=== PATIENT | male | born 1965 | race Caucasian/White ===

== ENCOUNTER 2024-12-31 05:04 | Inpatient (IN) | payer OTHER, SELFPAY ==
[2024-12-31] VITALS (22 sets, daily range): BP systolic 75–150; BP diastolic 44–100; BMI 29.7
--- NOTE | 2024-12-31 03:10 | ED.GENMED ---
History of Present Illness
General
Chief Complaint: Chest Pain
Source: patient
Exam Limitations: none
Time Seen by Provider: 12/31/24 02:47
Nursing documentation reviewed up to this point in time: agreed with
History of Present Illness
History of Present Illness:
59-year-old male presents to the emergency department with substernal chest pain that began approximate 45 minutes prior to arrival. According to he was ashen and sweaty. Patient denies any previous cardiac history. Upon arrival he states
that his pain was 10 out of 10. Upon arrival and after immediate intervention, he states his pain was 6 out of 10. Patient EKG was suspicious for early STEMI. I immediately [place] texted to Dr. Kip Tenorio, cardiology. She concurred and
recommended activation of the [facility] Program Coordinator.
Past History
Past History
ED Past Medical History: Hypercholesterolemia and Other (Kidney stones, Sleep apnea)
ED Past Surgical History: Other (Hernia repair)
Social History
Tobacco: Former smoker
Alcohol: Occasional
Drug: None
Personal:
Living: with family (with son)
Employment: Employed
Family History
Family History: Other (Father first heart attack in his 50's)
Phy Exam
Physical Exam
Physical Exam:
Physical Exam
Vital signs and allergy list reviewed and agreed with.
GENERAL: Alert , in moderate to severe apparent distress
EYE: pupils equal, EOMI, anicteric
NECK: Supple, no significant adenopathy. No masses. Trachea midline
ENT: Oropharynx is clear, mmm.
CARDIAC: Regular rate and rhythm
LUNGS: Clear breath sounds bilaterally, no acute respiratory distress, no wheezes/rales/rhonchi
ABDOMEN: Soft, without focal tenderness
NEUROLOGICAL: Alert and oriented, no focal neuro deficits
SKIN: Warm and diaphoretic, ashen in appearance
MUSCULOSKELETAL: No edema, well perfused. Moves all 4 extremities
PSYCH: Anxious affect, normal communication
Scores
Heart Score for Chest Pain Patients
STEMI patient?: Yes
Course
Orders/Labs/Results
Orders:
Orders
12/31/24 02:40
Electrocardiogram (*1) Urgent
Reason for Study: Chest Pain
EKG- Treatment ONCE
12/31/24 02:52
Electrocardiogram (*1) Stat
Reason for Study: Other
Other Reason for Exam: chest pain
Cardiac Monitoring- Treatment ONCE
EKG- Treatment ONCE
12/31/24 02:56
Cardiac Monitoring- Treatment ONCE
IV Insert/Care/Rem.- Treatment PRN
O2 Therapy [RESP] Urgent
Titrate/Wean O2 to maintain O2 sat greater than (%): 90
Special Instructions: Maintain sats >/=90%
Pulse Ox/spot Check [RESP] Urgent
Quantity: 1
Special Instructions: ON ROOM AIR
12/31/24 02:57
Complete Blood Count/With Diff Urgent
Comprehensive Metabolic Panel Urgent
PTT Urgent
Prothrombin Time Urgent
12/31/24 02:58
NT-proBNP Urgent
Troponin I Urgent
12/31/24 03:00
Electrocardiogram (*1) Urgent
Reason for Study: Chest Pain
EKG- Treatment ONCE
12/31/24 03:27
Fentanyl Citrate/Pf [Sublimaze] 100 mcg .ROUTE .STK-MED ONE
Heparin 1000 Units/500 ml [Heparin] 1,000 units in 500 ml .ROUTE .STK-MED
Heparin Sodium,Porcine/Ns/Pf [Heparin 2000 Units/1000 ml] 2,000 unit in 1,000 ml .ROUTE .STK-MED
Lidocaine HCl/Pf [Xylocaine-Mpf 1% Vial] 200 mg .ROUTE .STK-MED ONE
Midazolam HCl [Versed] 2 mg .ROUTE .STK-MED ONE
12/31/24 03:28
Heparin 10,000 units .ROUTE .STK-MED ONE
Verapamil Injectable [Isoptin/Verapamil Injection] 5 mg .ROUTE .STK-MED ONE
12/31/24 03:37
Nitroglycerin [Tridil] 1,500 mcg .ROUTE .STK-MED ONE
12/31/24 03:51
Aspirin Chewable [Low Strength Aspirin] 324 mg .ROUTE .STK-MED ONE
Heparin 5,000 units .ROUTE .STK-MED ONE
Ticagrelor [Brilinta] 180 mg .ROUTE .STK-MED ONE
12/31/24 03:58
Eptifibatide [Integrilin] 20 ml .ROUTE .STK-MED
12/31/24 04:24
Admit Patient As Directed
Co-Sign Provider:
Level of Care: Inpatient admission
Assign to:: IVU
Physician / Group: Ngozi
Diagnosis: Anterior STEMI
Patient Condition: Good
Reason for Hospitalization: Anterior STEMI
Expected length of stay greater than two midnights?: Yes
ELOS- Estimated Length of Stay in days: 2
I certify the patient meets the requirements for IP care: Yes
Electrocardiogram (*1) Urgent
Reason for Study: Other
Other Reason for Exam: s/p intervention
Code Status As Directed
Resuscitation Status: Full Code
CARDIAC REHAB CONSULT Routine
Co-Sign Provider:
Cardiac Rehab & Exercise Evaluation Referral
Type of Cardiac Rehab Referral: Outpatient
Diagnosis: STEMI
Date of Diagnosis/Surgery: [id number]
Referring Provider: Honorio Melvin
[facility] Intensive Cardiac Rehab Exercise Prescription
The above named person is capable of participating in an intensive cardiac rehab exercise therapy program
under the guidance of the [facility] cardiac rehab staff, outpatient registered dieticians and
supervision of a physician.
ICR Program Objectives:
Provide supervised exercise, cooking classes, nutritional counseling and healthy mind-set education to
improve the function/symptom free work capacity to an optimal level as well as control risk factors to
prevent the progression of heart disease. During the supervised exercise therapy session some or all of
the following may be included in the cardiac rehab session: ECG telemetry, BP, heart rate, rate of
perceived exertion, symptoms/tolerance, cholesterol testing and education. Exercise modalities may
include: treadmill, upright or recumbent bike, spin bike, rowing machine, elliptical, recumbent
elliptical, arm-bike machine, recumbent stepper and free weights.
Intensity:
All CR staff will use ACSM guidelines: Most patients will exercise in the following range: Heart Rate
[place] range of 40% to 80% & Oxygen Uptake reserve range 40-80% (VO2R). Peak heart rate and VO2 are
derived from the cardiac rehab submaximal graded exercise test at RPE of 13/14 out of 20. Initial
intensity range: RPE 11 to 14/20 and may expand to 11 to 16/20.
Duration & Frequency:
If appropriate the patient will be progressed up to 40 minutes of exercise therapy. Patients will be
instructed to come three times a week in cardiac rehab and at a home/other gym to achieve optimal
physical activity/exercies i.e. 4000-10,000 steps per day.
Education:
The patient will receive one-on-one education during their orientation, initial exercise evaluation, ITP
reassessments and discharge session. Each exercise session will also include an education class (30-40
minutes).
Activity As Directed
Activity Level: Out of Bed- Chair
Comment: bed/chair rest for 2 hours then out of bed ad víctor
[facility] Coordinator Procedure As Directed
Cardiac Cath Procedure: percutaneous coronary intervention
Intake/ Output As Directed
Frequency: Per unit guidelines
Notify MD As Directed
Notify physician if: immediately for chest pain or bleeding from access site(s)
Radial Artery Hemostasis Method As Directed
Instructions:: 3 mL out at 2 hour posts placement of band
3 mL out at 2 1/2 hours post placement of band
3 mL out at 3 hours post placement of band
Off at 3 1/2 hours post placement of band
If any oozing or hemotoma occurs:: re-inflate band and call provider
Site Checks As Directed
Check access site for bleeding/hematoma: Yes
Comment: on arrival, Q15min x4, Q30min x2, Q1 hr x2, Q2 hr x2, Q4 hr or per
protocol
Vascular Checks As Directed
Location: distal to access site - pulse check
Frequency: Other
Comment: on arrival, Q15min x4, Q30min x2, Q1 hr x2, Q2 hr x2, Q4 hr or per protocol
Vital Signs As Directed
Frequency: Other
Additional Instructions:: on arrival, Q15min x4, Q30min x2, Q1 hr x2, Q2 hr x2, then Q4 hr or per unit
protocol
12/31/24 04:25
PRN Pain Medication Management As Directed
May give lesser potent ordered pain med per pt: Yes
preference::
Protocol:: Medication orders for pain may be administered in a
manner that supports deferring to patient preference
when the pt is:
- Requesting an ordered lesser potent pain medication.
Least to most potent pain medications are defined
as: acetaminophen < NSAID < tramadol < opioids
(morphine, oxycodone, hydromorphone).
- Requesting a lesser dose of the same medication IF
ORDERED.
- Requesting a less intrusive route of administration
if both routes are prescribed by the provider (PO <
IV).
12/31/24 04:26
DX Deep Vein Thrombosis Video Routine
12/31/24 04:29
Acetaminophen [Tylenol] 650 mg PO Q4HPRN PRN
12/31/24 05:00
Flush (0.9% Sodium Chloride) [Flush (Nss)] See Dose Instructions IV PER PROTOCOL
12/31/24 05:35
Cardiovascular Evaluation IN AM
Glycohemoglobin (HgbA1c) Routine
TSH Urgent
Troponin I Q6H
12/31/24 Breakfast
Cholesterol Lowering
Cholesterol Lowering: Sodium, 2 Gram
12/31/24 08:00
Aspirin Chewable [Low Strength Aspirin] 81 mg PO DAILY
Lisinopril [Zestril] 2.5 mg PO DAILY
Metoprolol Xl [Toprol Xl] 12.5 mg PO DAILY
Ticagrelor [Brilinta] 90 mg PO BID
12/31/24 09:00
Electrocardiogram (*1) IN AM
Reason for Study: Other
Other Reason for Exam: s/p intervention
12/31/24 10:30
Troponin I Q6H
12/31/24 16:30
Troponin I Q6H
12/31/24 18:00
Atorvastatin [Lipitor] 80 mg PO QPM
Enoxaparin Sodium [Lovenox] 40 mg SC QPM
01/01/25 06:00
Echo 2D MMode Color/Doppler IN AM
Reason for Study: Anterior STEMI
Cardiology Consult: Honorio Melvin
Basic Metabolic Panel IN AM
Complete Blood Count/No Diff IN AM
01/02/25 06:00
Basic Metabolic Panel IN AM
Complete Blood Count/No Diff IN AM
Abnormal Lab Results
12/31/24 12/31/24 12/31/24
02:57 02:58 03:38
MCH 31.5 H pg
(27.0-31.0)
MPV 11.0 H fL
(7.4-10.4)
Absolute Lymphs (auto) 3.8 H 10^3/uL
(1.2-3.4)
Absolute Monos (auto) 0.9 H 10^3/uL
(0.1-0.6)
Neutrophils % 41.9 L %
(42.2-75.2)
Monocytes % 10.0 H %
(1.7-9.3)
Glucose 135 H mg/dl
(70-99)
ALT 52 H U/L
(0-50)
Troponin I 0.050 H* ng/ml
POC ACT Low Range 171 H Seconds
(116-155)
12/31/24 12/31/24
03:53 04:05
MCH
MPV
Absolute Lymphs (auto)
Absolute Monos (auto)
Neutrophils %
Monocytes %
Glucose
ALT
Troponin I
POC ACT Low Range 219 H Seconds 388 H Seconds
(116-155) (116-155)
12/31/24 02:57
12/31/24 02:57
Vital Signs
Initial and Last Documented VS:
Initial Vital Signs
Temp Pulse Resp BP Pulse Ox
98.6 F 56 18 129/83 99
12/31/24 02:48 12/31/24 02:48 12/31/24 02:48 12/31/24 02:48 12/31/24 02:48
Last Documented Vital Signs
Temp Pulse Resp BP Pulse Ox
98.6 F 67 24 141/85 97
12/31/24 02:48 12/31/24 06:00 12/31/24 03:25 12/31/24 06:00 12/31/24 06:02
*Critical Care Note
Total Time (30-74mins, 75-104mins- exclusive of procedures): 30 (30 Critical care statement: A total of 30 minutes of critical care time was provided for this patient. This time is separate from time utilized to perform the aforementioned
documented procedures. Aggregate critical care time includes only time during which I was engaged in work dire)
Update Note
Update Note:
Dr. Melvin present at the bedside
ED Attending Note
-
Portions of this chart may have been created with voice recognition software.� Occasional wrong word or��sound alike� substitutions may have occurred due to the inherent limitations of voice recognition software.
Discharge Plan
Departure
Patient Disposition: [facility]
Admit to: geophysical laboratory director
Presentation/result/management discussed w/ accepting MD/DO: Dr. Melvin
Patient with high blood pressure during this ER visit?: Yes
Discharge Problem:
ACS (acute coronary syndrome)
Interventions
Interventions:
*Risk Screen - Suicide Last Done: 12/31/24 02:48
*General Assessment Last Done: 12/31/24 02:48
*Neglect/Abuse Screening Last Done: 12/31/24 02:48
*ED COVID-19 Vaccine History Last Done: 12/31/24 02:48
*Nursing Disposition Last Done: 12/31/24 03:38
Discharge Date and Time
Discharge Date/Time: 12/31/24 03:39
[2024-12-31 03:15] LABS: % Basophils 0.8 % (0-2); % Eosinophils 3.2 % (0-6); % Immature Granulocytes 0.2 % (0-0.5); % Lymphocytes 43.9 % (20.5-51.1); % Neutrophils 41.9 % (42.2-75.2); Absolute Basophils 0.1 10^3/uL (0-0.2); Absolute Eosinophils 0.3 10^3/uL (0-0.7); Absolute Lymphocytes 3.8 10^3/uL (1.2-3.4); Absolute Monocytes 0.9 10^3/uL (0.1-0.6); Absolute Neutrophils 3.7 10^3/uL (1.4-6.5); Hematocrit 46.8 % (39.0-52.0); Hemoglobin 16.5 g/dL (13.0-18.0); Mean Corp Hgb Conc. 35.3 g/dL (33.0-37.0); Mean Corpuscular Hgb 31.5 pg (27.0-31.0); Mean Corpuscular Volume 89.5 fL (80.0-94.0); Nucleated Red Blood Cells % 0 % (-); Platelet Count 206 10^3/uL (130-400); Red Blood Cell Count 5.23 10^6/uL (4.70-6.10); Red Cell Dist. Width 12.9 % (11.5-14.5); White Blood Cell Count 8.7 10^3/uL (4.8-10.8)
[2024-12-31 03:27] LABS: INR 1.05
[2024-12-31 03:32] LABS: ALT (SGPT) 52 U/L (0-50); AST (SGOT) 28 U/L (17-59); Albumin 3.9 g/dl (3.5-5.0); Alkaline Phosphatase 70 U/L (38-126); Blood Urea Nitrogen 18 mg/dl (9-20); Calcium 9.8 mg/dl (8.4-10.2); Carbon Dioxide 26 mmol/L (22-30); Chloride 105 mmol/L (98-107); Estimated Creatinine Clearance 86 ml/min; Glucose 135 mg/dl (70-99); Potassium 3.7 mmol/L (3.5-5.1); Sodium 138 mmol/L (135-145); Total Bilirubin 0.8 mg/dl (0.2-1.3); Total Protein 6.4 g/dl (6.3-8.2); eGFR > 60.00
[2024-12-31 03:45] LABS: ACT-LR - POC 171 Seconds (116-155)
[2024-12-31 03:50] LABS: NT-proBNP < 20.0 pg/ml
[2024-12-31 03:58] LABS: ACT-LR - POC 219 Seconds (116-155)
[2024-12-31 04:11] LABS: ACT-LR - POC 388 Seconds (116-155)
--- NOTE | 2024-12-31 04:48 | ITS.CL.CATH ---
[facility] - Catheterization
Cardiac Catheterization
Procedure Report:
LEFT HEART CATH AND CORONARY INTERVENTION
Date of Procedure: December 31, 2024
Referring: [facility] Emergency Department
PROCEDURES:
1. Left heart catheterization with coronary and single-plane left ventriculography
2. Successful stenting of 100% occluded mid LAD with a 3.0 x 22 mm [place] stent that was implanted at nominal pressures and postdilated to high pressures with a 3.25 mm noncompliant balloon between 18 and 24 juan antonio
INDICATION: This is a 59-year-old gentleman with no prior cardiac history who presented to [facility] with 10 out of 10 substernal chest tightness diaphoresis and nausea. His electrocardiogram was concerning for an evolving anterior wall
myocardial infarction with approximately [address] elevation in the anterior leads. His symptoms improved somewhat with heparin and nitroglycerin but persisted and a STEMI alert was activated. He states that he experienced midepigastric and
substernal chest tightness of similar quality earlier on the day before admission with symptoms lasting about an hour before resolution after taking some Tums. This evening the symptoms persisted leading him to seek medical attention
ACCESS: Right radial artery, 6 Slovenian sheath
HEMODYNAMICS (mmHg):
AO (s/d, m) : 134/70
LV (s/d) : 130/16
LVEDP : 32
CORONARY FINDINGS
Dominance: Right
LEFT MAIN: Normal
LEFT ANTERIOR DESCENDING: The LAD arises normally from the left main and runs in the anterior interventricular groove as a large-caliber vessel. The LAD becomes 100% occluded in its mid segment.
CIRCUMFLEX: The circumflex gives rise to a moderate caliber proximally arising OM1, small OM 2 then continues in the AV groove giving rise to 2 small posterolateral branchs
RIGHT CORONARY: The right coronary artery is a medium caliber dominant vessel with a 60% proximal stenosis. The remainder of the right coronary artery has only minor irregularities. The PDA is small and patent.
VENTRICULOGRAPHY: Left ventriculography is performed in an CUMMINS projection. The digital single-plane left ventricular ejection fraction is estimated at 50% with distal anterior, apical, and inferoapical hypokinesis
ANGIOPLASTY PROCEDURE DETAIL: Upon review of the diagnostic angiograms a decision was made to proceed with percutaneous revascularization of the occluded segment in the mid LAD. Intravenous heparin was administered and a double bolus of Integrilin
was given with ongoing symptoms and an antiplatelet na�ve patient with 100% occlusion of the mid LAD. He had received aspirin and a loading dose of ticagrelor while in the emergency department.
The origin of the left main was cannulated with a 6 Slovenian XB 3.5 guiding catheter and a BMW guidewire across the occluded segment in the mid LAD and was advanced to the distal. Balloon predilation was performed with a 2.0 mm Euphora balloon and
was followed by placement of a 3.0 x 22 mm [place] stent that was implanted at nominal pressures and postdilated to high pressures with a 3.25 mm noncompliant balloon. The proximal portion of the stent was implanted with a 3.25 mm noncompliant balloon
to 22 juan antonio while the distal site of the stent was postdilated to 18 juan antonio
RADIATION SUMMARY: Fluoro Time (min): 11.4, Dose (mGy): 1173, DAP (Gy.cm2) : 102
CONCLUSIONS
1. Evolving anterior wall myocardial infarction with 100% occlusion of the mid LAD. Successful angioplasty and stenting of the LAD with placement of a 3.0 x 22 mm [place] stent that was postdilated to high pressures with a 3.25 mm noncompliant balloon
2. Preserved LV systolic function with distal anterior, apical, and apical inferior hypokinesis
3. Moderate coronary disease in the proximal RCA
RECOMMENDATIONS
1. Uninterrupted dual antiplatelet therapy for 12 months
2. High intensity statin and guideline directed medical therapy
3. Will trend serial troponin levels and check hemoglobin A1c. Fasting lipid profile will be obtained.
4. Echocardiogram on 01/01/2025
5. Further management decisions will be made based on clinical course
[2024-12-31 06:23] LABS: HDL Cholesterol 48 mg/dl; LDL Cholesterol, Calculated 75 mg/dl; Total Cholesterol 135 mg/dl (50-199); Triglyceride 60 mg/dl (10-149); Very Low Density Lipoprotein 12 mg/dl (0-30)
[2024-12-31 06:55] LABS: TSH 2.83 uIU/ml (0.47-4.68)
--- NOTE | 2024-12-31 07:19 | PTCARENOTE ---
Received patient @ 0440 from [facility]. A&Ox3. Vitals stable, on 2L O2. 8mL of air in right radial band. Right radial site clean, dry, and intact. No hematoma and soft to the touch. Discussed temporary bedrest, deflating the band, ambulation time,
and not using arm to push self up. Patient verbalized understanding. Call crawford within reach.
[2024-12-31] MEDS: TOPROL XL 12.5 MG PO (08:25)
[2024-12-31] MEDS: LOW STRENGTH ASPIRIN 81 MG PO (08:25)
[2024-12-31] MEDS: BRILINTA 90 MG PO ×2 (08:25→19:21)
[2024-12-31] MEDS: ZESTRIL 2.5 MG PO (08:26)
[2024-12-31] MEDS: FLUSH (NSS) 2 FLUSH IV (08:27)
--- NOTE | 2024-12-31 10:11 | PTCARENOTE ---
Received patient this morning resting in bed, S.O. at the bedside. Radial band was dry and intact, continued to remove air from the band as per post cath orders. 2x2 dressing with tegaderm now in place right wrist. Strong radial pulse palpated, no
bleeding or signs of hematoma noted. Reinforced post cath activity restrictions and plan of care. Denies any chest pain, monitoring VS, 0900 EKG completed, call crawford in reach.
[2024-12-31 10:46] LABS: Glycohemoglobin (HgbA1c) 5.8 % (4.0-5.6)
[2024-12-31] MEDS: LIPITOR 80 MG PO (17:26)
[2024-12-31] MEDS: LOVENOX 40 MG SC (17:27)
[2025-01-01] VITALS (7 sets, daily range): BP systolic 95–157; BP diastolic 65–94
--- NOTE | 2025-01-01 05:13 | PTCARENOTE ---
Rec'd pt at change of shift. PT AAO*3, VSS, and SR with bundle on TELE monitor. Pt denies any active pain or discomfort. R radial site CDI, and pt agrees to R upper extremity restriction. Pt updated on plan of care and resting with call crawford in
reach.
[2025-01-01 05:27] LABS: Hematocrit 47.7 % (39.0-52.0); Hemoglobin 16.3 g/dL (13.0-18.0); Mean Corp Hgb Conc. 34.2 g/dL (33.0-37.0); Mean Corpuscular Hgb 31.4 pg (27.0-31.0); Mean Corpuscular Volume 91.9 fL (80.0-94.0); Platelet Count 177 10^3/uL (130-400); Red Blood Cell Count 5.19 10^6/uL (4.70-6.10); Red Cell Dist. Width 13.2 % (11.5-14.5); White Blood Cell Count 8.6 10^3/uL (4.8-10.8)
[2025-01-01 05:50] LABS: Blood Urea Nitrogen 16 mg/dl (9-20); Calcium 9.1 mg/dl (8.4-10.2); Carbon Dioxide 24 mmol/L (22-30); Chloride 102 mmol/L (98-107); Estimated Creatinine Clearance 97 ml/min; Glucose 113 mg/dl (70-99); Sodium 137 mmol/L (135-145); eGFR > 60.00
--- NOTE | 2025-01-01 08:35 | PTCARENOTE ---
Received patient this morning resting in bed, offers no complaints, echo being done at the bedside.
[2025-01-01] MEDS: ZESTRIL 2.5 MG PO (08:52)
[2025-01-01] MEDS: BRILINTA 90 MG PO ×2 (08:52→19:35)
[2025-01-01] MEDS: LOW STRENGTH ASPIRIN 81 MG PO (08:52)
[2025-01-01] MEDS: FLUSH (NSS) 2 FLUSH IV (08:53)
[2025-01-01] MEDS: TOPROL XL 12.5 MG PO (08:53)
--- NOTE | 2025-01-01 10:27 | W.PN.CARDCBS ---
Addendum entered and electronically signed by Omega Bianchi DO 01/01/25 11:40:
I saw and examined the patient.
The Ribber's note was reviewed and I agree with the note.
Comment:
Plan:
Cont routine post KS care
Reviewed cath with pt
Cont DAPT with ASA and Brilinta
Echo pending
Outpt cardiac rehab.
Add Zetia to Crestor for LDL goal <70.
SALOMÓN has been reviewed, CPAP is recommended and he will need outpt pulm follow up
Likely d/c next 24 hrs
Reviewed with nursing
Original Note:
Today's Communication / Plan
-
Echo pending
Cont meds
51 min including face to face and coordination of care
D/C to home tomorrow
Impression / Plan
-
PCP: Dr. Austen Ruby
Cardiology: None
Impression:
Admitted with NSTEMI and PCI 12/31/2024
AWMI with [address] elevation in anterior leads and ongoing symptoms of STEMI alert activated peak troponin 9.04 12/31/2024
CAD s/p 3 mm Ayad VINOD to 100% occlusion of mid LAD 12/31/2024
CAD with residual 60% proximal RCA stenosis
Hyperlipidemia
SALOMÓN
Echo 01/01/2025: Report pending
Plan:
-Patient came to ER early on the morning of 12/31/2024 with chest pain and ST elevation that initially did not meet criteria for traditional STEMI alert, but due to ongoing pain STEMI alert was activated and patient was taken to [facility] where he
was found to have a 100% occlusion of the mid LAD that was treated with PTCA and stenting using a 3 mm Ayad VINOD. There was residual 60% proximal RCA. Troponin peaked at 9.04. He is pain-free.
-Echo pending, ventriculogram done at time of cardiac cath showed EF 50% with distal anterior, apical and inferoapical hypokinesis
-Patient is tolerating aspirin and Brilinta. CM working on cost and availability
-New to Toprol XL 12.5 mg daily
-New to lisinopril 2.5 mg daily
-Patient was taking Crestor 40 mg daily prior to admission, but patient had been off of statin for 2 years until he reestablished PCP care 08/04/24.
-Lexicomp drug interaction performed and will need to monitor combination therapy Brilinta and Crestor and will check CK level along with repeat LFTs and CVE as an outpatient
-Start Zetia 10 mg daily, 01/01/25, ordered by me
-Patient also no longer on CPAP and needs to re-establish with pulmonology for SALOMÓN/CPAP eval
-Hyperglycemia and HgbA1c 5.8%. Patient plans on changing diet and working with cardiac rehab for help with diet changes
-Anticipating D/C to home on 01/02/2025
Progress Note - [facility]
Subjective
Date of Service: January 01, 2025
He feels well, no chest pain
Objective
Labs:
01/01/25 04:51
01/01/25 04:51
Labs
Hgb 16.3 g/dL (13.0-18.0) 01/01/25 04:51
Hct 47.7 % (39.0-52.0) 01/01/25 04:51
Plt Count 177 10^3/uL (130-400) 01/01/25 04:51
PT 14.0 Sec (11.4-14.6) 12/31/24 02:57
INR 1.05 12/31/24 02:57
APTT 28.0 Sec (23.4-35.0) 12/31/24 02:57
Sodium 137 mmol/L (135-145) 01/01/25 04:51
Potassium 4.0 mmol/L (3.5-5.1) 01/01/25 04:51
BUN 16 mg/dl (9-20) 01/01/25 04:51
Creatinine 0.8 mg/dL (0.7-1.3) 01/01/25 04:51
Glucose 113 mg/dl (70-99) H 01/01/25 04:51
Troponins
12/31/24 12/31/24 12/31/24
02:51 02:58 03:00
Troponin I Cancelled 0.050 H* Cancelled
12/31/24 12/31/24 12/31/24
05:35 06:00 10:33
Troponin I 1.900 H* D Cancelled 9.040 H* D
12/31/24
17:15
Troponin I 8.310 H*
Vital Signs and I&O:
Vital Signs
Temp Pulse Resp BP Pulse Ox
98.3 F 69 18 137/89 98
01/01/25 08:04 01/01/25 08:03 01/01/25 08:04 01/01/25 08:03 01/01/25 08:04
Vital Signs
Temp Pulse Resp BP Pulse Ox
98.3 F 69 18 137/89 98
01/01/25 08:04 01/01/25 08:03 01/01/25 08:04 01/01/25 08:03 01/01/25 08:04
Intake & Output
12/30/24 12/31/24 01/01/25 01/02/25
06:59 06:59 06:59 06:59
Intake Total 720 / 720 360 / 360
Balance 720 / 720 360 / 360
Physical Exam
Physical Exam
GEN: NAD. AAOx3
HEENT: MMM
LUNGS: RA. No audible wheeze
CV: SR on tele.
ABD: ND
EXT: No edema B/L
NEURO: Gross non-focal
SKIN: No rash
[2025-01-01] MEDS: ZETIA 10 MG PO (13:01)
--- NOTE | 2025-01-01 14:06 | CM ---
james guzmán at [facility] [employer] [facility], his copay is ZERO dollars and it is in stock.
--- NOTE | 2025-01-01 14:39 | CM ---
spoke to pt in room, he is pre vindep, lives with his son in a 2 story home with 12 steps to enter. he denies any dc planning needs or dme's. plan is for dc to home when medically stable.
[2025-01-01] MEDS: LOVENOX 40 MG SC (17:38)
[2025-01-01] MEDS: CRESTOR 40 MG PO (17:38)
--- NOTE | 2025-01-01 19:14 | PTCARENOTE ---
Patient showered this afternoon, tolerated well, no complaints of chest pain or sob. Ambulating in the room and to the patient lounge without complaints.
--- NOTE | 2025-01-01 20:26 | PTCARENOTE ---
Addendum entered by Colleen العلي RN 01/02/25 00:59:
Was informed by CV PA Marco Avery that to have a troponin added, I would need to reach out to a security and compliance analyst. Will speak with daysgaft RN and patient about requesting the troponin if still desired.
Original Note:
Received patient at change of shift. A&OX3. Sitting in lounge-- walked back to room for vitals. Vitals stable on room air. Discussed plan of care. Pt requested a troponin be drawn with morning labs for ease of mind. Denies chest pain or
palpitations. Will reach out to QUOTATION CHECKER. Patient verbalized understanding. Call crawford within reach.
[2025-01-02 03:58] VITALS: BP 115/82
[2025-01-02 04:28] LABS: Hematocrit 49.6 % (39.0-52.0); Hemoglobin 17.1 g/dL (13.0-18.0); Mean Corp Hgb Conc. 34.5 g/dL (33.0-37.0); Mean Corpuscular Hgb 31.4 pg (27.0-31.0); Mean Platelet Volume 10.8 fL (7.4-10.4); Platelet Count 193 10^3/uL (130-400); Red Blood Cell Count 5.45 10^6/uL (4.70-6.10); Red Cell Dist. Width 13.2 % (11.5-14.5); White Blood Cell Count 7.8 10^3/uL (4.8-10.8)
[2025-01-02 04:52] LABS: Blood Urea Nitrogen 20 mg/dl (9-20); Calcium 9.4 mg/dl (8.4-10.2); Carbon Dioxide 24 mmol/L (22-30); Chloride 105 mmol/L (98-107); Estimated Creatinine Clearance 97 ml/min; Glucose 103 mg/dl (70-99); Magnesium 2.1 mg/dl (1.6-2.3); Potassium 4.2 mmol/L (3.5-5.1); Sodium 136 mmol/L (135-145); eGFR > 60.00
--- NOTE | 2025-01-02 07:39 | W.PN.CARDCBS ---
Addendum entered and electronically signed by Delores Morse PA-C 01/04/25 16:08:
[id number]
Addendum entered and electronically signed by Omega Bianchi DO 01/02/25 13:04:
I saw and examined the patient.
The Traffic Control Supervisor's note was reviewed and I agree with the note.
Comment:
Plan:
Stable for d/c today
Reviewed his cath
Reviewed his follow up.
Outpt cardiac follow up.
Meds reviewed
EF is preserved.
Discussed with nursing.
Original Note:
Today's Communication / Plan
-
D/C to home today
Impression / Plan
-
PCP: Dr. Austen Ruby
Cardiology: None
Impression:
Admitted with NSTEMI and PCI 12/31/2024
AWMI with [address] elevation in anterior leads and ongoing symptoms of STEMI alert activated peak troponin 9.04 12/31/2024
CAD s/p 3 mm Ayad VINOD to 100% occlusion of mid LAD 12/31/2024
CAD with residual 60% proximal RCA stenosis
Hyperlipidemia
SALOMÓN
Echo 01/01/2025: EF 55-60%, mild conc LVH with normal diastolic function
Plan:
-No chest pain overnight, but some left arm pain similar to pain he had on and off for weeks prior to admission, but nothing like the crushing chest pain he had on admission which should be considered his angina type.
-EF preserved by echo and peak Troponin was 9.04
-Cardiac rehab consulted and he has his first session scheduled
-Patient is tolerating aspirin and Brilinta. Appreciate help of CM working on cost and availability, his local pharmacy has med in stock and he has a $0 co-pay
-New to Toprol XL 12.5 mg daily
-New to lisinopril 2.5 mg daily
-Patient was taking Crestor 40 mg daily prior to admission, but patient had been off of statin for 2 years until he reestablished PCP care 08/04/24. LDL 75 on 01/01/25
-Lexicomp drug interaction performed and will need to monitor combination therapy Brilinta and Crestor and will check CK level along with repeat LFTs and CVE as an outpatient
-Start Zetia 10 mg daily, 01/01/25, ordered by me
-Patient also no longer on CPAP and needs to re-establish with pulmonology for SALOMÓN/CPAP eval
-Hyperglycemia and HgbA1c 5.8%. Patient plans on changing diet and working with cardiac rehab for help with diet changes
-D/C to home on 01/02/2025
Progress Note - Farm Consultant
Subjective
Date of Service: January 02, 2025
He feels well, some LUE pain, but no chest pain like he had on admission
Objective
Labs:
01/02/25 04:05
01/02/25 04:05
Labs
Hgb 17.1 g/dL (13.0-18.0) 01/02/25 04:05
Hct 49.6 % (39.0-52.0) 01/02/25 04:05
Plt Count 193 10^3/uL (130-400) 01/02/25 04:05
PT 14.0 Sec (11.4-14.6) 12/31/24 02:57
INR 1.05 12/31/24 02:57
APTT 28.0 Sec (23.4-35.0) 12/31/24 02:57
Sodium 136 mmol/L (135-145) 01/02/25 04:05
Potassium 4.2 mmol/L (3.5-5.1) 01/02/25 04:05
BUN 20 mg/dl (9-20) 01/02/25 04:05
Creatinine 0.8 mg/dL (0.7-1.3) 01/02/25 04:05
Glucose 103 mg/dl (70-99) H 01/02/25 04:05
Troponins
12/31/24 12/31/24 12/31/24
02:51 02:58 03:00
Troponin I Cancelled 0.050 H* Cancelled
12/31/24 12/31/24 12/31/24
05:35 06:00 10:33
Troponin I 1.900 H* D Cancelled 9.040 H* D
12/31/24
17:15
Troponin I 8.310 H*
Vital Signs and I&O:
Vital Signs
Temp Pulse Resp BP Pulse Ox
97.9 F 66 16 115/82 94
01/02/25 04:19 01/02/25 06:00 01/02/25 04:19 01/02/25 03:58 01/02/25 04:19
Vital Signs
Temp Pulse Resp BP Pulse Ox
97.9 F 66 16 115/82 94
01/02/25 04:19 01/02/25 06:00 01/02/25 04:19 01/02/25 03:58 01/02/25 04:19
Intake & Output
12/31/24 01/01/25 01/02/25 01/03/25
06:59 06:59 06:59 06:59
Intake Total 720 / 720 360 / 360
Balance 720 / 720 360 / 360
Physical Exam
Physical Exam
GEN: NAD. AAOx3
HEENT: MMM
LUNGS: RA. No audible wheeze
CV: SR on tele.
ABD: ND
EXT: No edema B/L
NEURO: Gross non-focal
SKIN: No rash
[2025-01-02 08:14] VITALS: BP 114/63
[2025-01-02] MEDS: ZESTRIL 2.5 MG PO (08:33)
[2025-01-02] MEDS: BRILINTA 90 MG PO (08:33)
[2025-01-02] MEDS: TOPROL XL 12.5 MG PO (08:33)
[2025-01-02] MEDS: ZETIA 10 MG PO (08:33)
[2025-01-02] MEDS: LOW STRENGTH ASPIRIN 81 MG PO (08:33)
--- NOTE | 2025-01-02 09:21 | PTCARENOTE ---
received patient this am sitting in chair watching TV, patients c/o left shoulder pain, EKG obtained, Delores LEON aware. patient stated after he ate shoulder felt better. monitor shows NSR with BBC, VSS. right radial dsg. D/I, distal pulse
palpable. patient will be discharged to home some time today.
--- NOTE | 2025-01-02 10:42 | W.DS.TRANS ---
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
-
Discharge Instructions:
Discharge Diagnosis/Procedures Acute anterior wall myocardial infarction,
status post 3 mm [place] drug-eluting stent to the
mid left anterior descending artery for area of
100% occlusion on 12/31/2024, coronary artery
disease with residual 60% proximal right
coronary artery stenosis to be medically managed
, hyperlipidemia
Diet Low Fat,Low Sodium
Activity No strenuous activity
Driving Restrictions As prior to admission
Bathing Restrictions OK to Shower
Blood Work -Check non-fasting blood work in 2 weeks to
monitor kidney function and electrolytes
-Check FASTING blood work in 3 months to monitor
cholesterol levels
Other Services Cardiac Rehab
Instructions:
Stand-Alone Forms: DC Instructions- Cath/EP Lab
Changes to Home Medications: Yes
Discharge Medications:
DC Medications w/original date entered in [employer]
famotidine 40 mg tablet 40 mg PO HS 12/31/24
omeprazole 40 mg capsule,delayed release 40 mg PO BID 12/31/24
rosuvastatin 40 mg tablet 40 mg PO DAILY 12/31/24
aspirin 81 mg chewable tablet 81 mg PO DAILY Heart disease/condition #30 tabs 01/02/25
ezetimibe 10 mg tablet 10 mg PO DAILY High cholesterol #30 tabs 01/02/25
lisinopril 2.5 mg tablet 2.5 mg PO DAILY Heart disease/condition #30 tabs 01/02/25
metoprolol succinate 25 mg tablet,extended release 24 hr 12.5 mg (1/2 x 25 mg) PO DAILY Heart disease/condition #30 tabs 01/02/25
ticagrelor 90 mg tablet (Brilinta) 90 mg PO BID Heart disease/condition #60 tabs 01/02/25
Home Medication Changes
New to Brilinta, aspirin, Toprol XL, lisinopril and Zetia
Pending Results: No
[2025-01-02 10:50] VITALS: BP 134/90
--- NOTE | 2025-01-02 12:24 | PTCARENOTE ---
D/C instructions given to patient, verbalizes understanding. INT x 2 D/C'd, telemetry D/C'd, personal belongings packed and sent home with patient. D/C to home via wc accompanied by staff.
== END 2025-01-02 13:00 | disposition home or self-care (01) | DRG 322 ==
LOC: IVU 05:04
PROVIDERS: ADMITTING PHYSICIAN Internal Medicine Interventional Cardiology; EMERGENCY PHYSICIAN Student in an Organized Health Care Education/Training Program; PRIMARYCARE PHYSICIAN Student in an Organized Health Care Education/Training Program
PROC: 4A023N7 Measurement of Cardiac Sampling and Pressure, Left Heart, Percutaneous Approach (ICD-10-PCS; 2024-12-31)
PROC: B2111ZZ Fluoroscopy of Multiple Coronary Arteries using Low Osmolar Contrast (ICD-10-PCS; 2024-12-31)
PROC: 027034Z Dilation of Coronary Artery, One Artery with Drug-eluting Intraluminal Device, Percutaneous Approach (ICD-10-PCS; 2024-12-31)
PROC: B2151ZZ Fluoroscopy of Left Heart using Low Osmolar Contrast (ICD-10-PCS; 2024-12-31)
DX: I21.09 ST elevation (STEMI) myocardial infarction involving other coronary artery of anterior wall (principal); Z87.891 Personal history of nicotine dependence; E78.5 Hyperlipidemia, unspecified; G47.33 Obstructive sleep apnea (adult) (pediatric); I25.10 Atherosclerotic heart disease of native coronary artery without angina pectoris; Z82.49 Family history of ischemic heart disease and other diseases of the circulatory system
CPT/HCPCS: 80048; 80053; 80061; 83036; 83735; 83880; 84443; 84484; 85025; 85027; 85347; 85610; 85730; 93005; 93306; 93458; 99285; C1725; C1769; C1874; C1887; C1894; C9606; J1327; Q9967

== ENCOUNTER → 2025-07-19 07:03 | Outpatient (REF) | payer OTHER, SELFPAY | LOC: HWRCS 07:03 | PROVIDERS: ATTENDING PHYSICIAN Internal Medicine Interventional Cardiology; FAMILY PHYSICIAN Internal Medicine | DX: I25.2 Old myocardial infarction (principal) | CPT/HCPCS: 93306 ==